=== PATIENT | male | born 1970 | race African-American/Black ===

== ENCOUNTER 2017-07-03 | Emergency (ER) | payer SELFPAY ==
[~2017-07-03] VITALS: Ht 172.7 cm; Wt 65.0 kg
[2017-07-03] MEDS ORDERED: SODIUM CHLORIDE 0.9% 1,000 ML IV ONE (01:04)
[2017-07-03 05:09] VITALS: BP 122/78
== END 2017-07-03 05:18 | disposition home or self-care (01) ==
LOC: ER 00:02
DX: F10.129 Alcohol abuse with intoxication, unspecified (principal); Y90.8 Blood alcohol level of 240 mg/100 ml or more
CPT/HCPCS: 36415; 99284; G0482; J7030; Z7610

== ENCOUNTER 2019-04-16 22:49 | Emergency (ER) | payer MEDICAID | END 2019-04-17 00:07 | disposition left against medical advice (07) | LOC: ER 22:49 | DX: Z53.21 Procedure and treatment not carried out due to patient leaving prior to being seen by health care provider (principal) ==